=== PATIENT | female | born 1995 | race Caucasian/White ===

== ENCOUNTER → 2017-10-31 | Outpatient (CLI) | payer OTHER ==
[2017-10-31 17:05] LABS: PROLACTIN 9.44 ng/mL
[2017-10-31 17:06] LABS: FOLLICLE STIMULAT HORMONE 4.49 IU/L; LUTEINIZING HORMONE 2.07 IU/L
== END | disposition home or self-care (01) ==
LOC: C.LABBC 12:39
PROVIDERS: ATTEND Obstetrics & Gynecology
DX: N91.5 Oligomenorrhea, unspecified (principal)